=== PATIENT | female | born 1985 | race Two or more races ===

== ENCOUNTER 2018-06-05 13:48 | Emergency (ER) | payer BC, OTHER ==
[~2018-06-05] VITALS: Ht 154.9 cm; Wt 62.6 kg
[~2018-06-05 13:48] MED LIST: ATIVAN0.5 MG PO; AUGMENTIN 875-1 EAC1 ORAL; ENBREL25 MG SQ; ENBREL50 MG/1 ML SQ; IBUPROFEN600 MG ORAL; LORAZEPAM0.5 MG PO; MACROBID 100 M100 MG PO; NORCO 5-325 TA1 EACH ORAL
[2018-06-05 14:00] VITALS: BP 122/70
[2018-06-05 14:41] LABS: BASOPHILS % (AUTO) 1.2 % (0.0-2.0); EOSINOPHILS % (AUTO) 1.1 % (0.0-3.0); LYMPHOCYTES % (AUTO) 31.2 % (20.0-45.0); MEAN CORPUSCULAR VOLUME 99 FL (80-99); NEUTROPHILS % (AUTO) 59.5 % (45.0-75.0); PLATELET COUNT 280 K/UL (150-450); RED BLOOD COUNT 4.25 M/UL (4.20-5.40); RED CELL DISTRIBUTION WIDTH 11.5 % (11.6-14.8); WHITE BLOOD COUNT 7.2 K/UL (4.8-10.8)
[2018-06-05 14:50] LABS: ANION GAP 15 mmol/L (5-15); BLOOD UREA NITROGEN 10 mg/dL (7-18); CALCIUM 8.7 MG/DL (8.5-10.1); CARBON DIOXIDE 22 MMOL/L (21-32); CHLORIDE 105 MMOL/L (98-107); CREATININE 0.5 MG/DL (0.55-1.30); POTASSIUM 3.8 MMOL/L (3.5-5.1); SODIUM 142 MMOL/L (136-145)
--- NOTE | 2018-06-05 14:50 | Emergency Room Report ---
History of Present Illness General Chief Complaint: Nausea, Vomiting, and Diarrhea Source: Patient Present Illness HPI 42-year-old female presents to the emergency department complaining of multiple episodes of vomiting and diarrhea since early this a.m. Patient reports she woke up and began vomiting she estimates approximately 5 times this morning. Patient denies blood in the vomit she does report diarrhea with some specks of blood she states she has a history of external hemorrhoids and has had recent colonoscopy performed about months ago which determined this. Patient denies . she denies abdominal pain she reports some cramping sensations prior to bowel movements or episodes of vomiting. She states she was drinking heavily last night and she is not normally used to that. Eyes fevers, chills, recent travel or ill contacts. Allergies: Coded Allergies: No Known Allergies (Unverified , 04/05/12) Patient History Past Medical History: see triage record Past Surgical History: none Pertinent Family History: none Last Menstrual Period: 05/23/2018 Now: No Reviewed Nursing Documentation: PMH: Agreed; PSxH: Agreed Nursing Documentation-PMH Past Medical History: No History, Except For History Of Psychiatric Problem: Yes - anxiety Review of Systems All Other Systems: negative except mentioned in HPI Physical Exam Vital Signs Date Time Temp Pulse Resp B/P (MAP) Pulse Ox O2 Delivery O2 Flow Rate FiO2 06/05/18 13:58 98.2 99 16 122/70 98 Room Air Sp02 EP Interpretation: reviewed, normal General Appearance: alert, GCS 15, non-toxic, mild distress Head: normocephalic, atraumatic Eyes: bilateral eye normal inspection, bilateral eye PERRL ENT: hearing grossly normal, normal voice Neck: full range of motion Respiratory: lungs clear, normal breath sounds, speaking full sentences Cardiovascular #1: regular rate, rhythm, normal capillary refill Gastrointestinal: normal bowel sounds, non tender, soft, no peritonitis, non- distended, no guarding Rectal: deferred Genitourinary: normal inspection, no CVA tenderness Musculoskeletal: back normal, gait/station normal, normal range of motion, non- tender Neurologic: alert, oriented x3, responsive, motor strength/tone normal, sensory intact, normal gait, speech normal, grossly normal Psychiatric: judgement/insight normal Skin: normal color, no rash, warm/dry, well hydrated Medical Decision Making PA Attestation Dr. marroquin is my supervising Physician whom patient management has been discussed with. Diagnostic Impression: Primary Impression: Dehydration, mild Additional Impression: Nausea, vomiting, and diarrhea ER Course 42-year-old female presents to the emergency department complaining of multiple episodes of vomiting and diarrhea since early this a.m. Patient reports she woke up and began vomiting she estimates approximately 5 times this morning. Patient denies blood in the vomit she does report diarrhea with some specks of blood she states she has a history of external hemorrhoids and has had recent colonoscopy performed about months ago which determined this. Patient denies she denies abdominal pain she reports some cramping sensations prior to bowel movements or episodes of vomiting. She states she was drinking heavily last night and she is not normally used to that. Eyes fevers, chills, recent travel or ill contacts. Ddx considered but are not limited to GE, colitis, acute appy, SBO, Cyclical Vomiting secondary to THC, * Vital signs: pt. is afebrile, H&PE are most consistent with GE most likely viral in etiology, no evidence to suggest acute abdomen on physical exam. ORDERS: -CBC: WNL -BMP: WNL electrolytes ok, -Urine Hcg: negative ED INTERVENTIONS: -1000 NS iv hydration, -Zofran 4mg-- Pt. declined -Pt. reports feeling much better and is ready to go home. DISCHARGE: At this time pt. is stable for d/c to home. Will provide printed patient care instructions, and any necessary prescriptions. Care plan and follow up instructions have been discussed with the patient prior to discharge. Labs Test 06/05/18 14:20 06/05/18 14:25 Urine HCG, Qualitative Negative (NEGATIVE) White Blood Count 7.2 K/UL (4.8-10.8) Red Blood Count 4.25 M/UL (4.20-5.40) Hemoglobin 14.0 G/DL (12.0-16.0) Hematocrit 42.0 % (37.0-47.0) Mean Corpuscular Volume 99 FL (80-99) Mean Corpuscular Hemoglobin 32.9 PG (27.0-31.0) Mean Corpuscular Hemoglobin Concent 33.3 G/DL (32.0-36.0) Red Cell Distribution Width 11.5 % (11.6-14.8) Platelet Count 280 K/UL (150-450) Mean Platelet Volume 6.9 FL (6.5-10.1) Neutrophils (%) (Auto) 59.5 % (45.0-75.0) Lymphocytes (%) (Auto) 31.2 % (20.0-45.0) Monocytes (%) (Auto) 7.0 % (1.0-10.0) Eosinophils (%) (Auto) 1.1 % (0.0-3.0) Basophils (%) (Auto) 1.2 % (0.0-2.0) Sodium Level 142 MMOL/L (136-145) Potassium Level 3.8 MMOL/L (3.5-5.1) Chloride Level 105 MMOL/L (98-107) Carbon Dioxide Level 22 MMOL/L (21-32) Anion Gap 15 mmol/L (5-15) Blood Urea Nitrogen 10 mg/dL (7-18) Creatinine 0.5 MG/DL (0.55-1.30) Estimat Glomerular Filtration Rate > 60 mL/min (>60) Glucose Level 80 MG/DL (74-106) Calcium Level 8.7 MG/DL (8.5-10.1) Last Vital Signs Date Time Temp Pulse Resp B/P (MAP) Pulse Ox O2 Delivery O2 Flow Rate FiO2 06/05/18 14:00 98.2 86 16 122/70 98 Room Air Disposition: HOME, SELF-CARE Condition: Stable Scripts Ondansetron Odt* (ZOFRAN ODT*) 8 Mg Tab.rapdis 4 MG ORAL Q6H PRN for Nausea & Vomiting, #12 TAB Prov: Jie Tee 06/05/18 Dicyclomine Hcl* (DICYCLOMINE HCL*) 10 Mg Capsule 10 MG PO QID, #12 CAP Prov: Jie Tee 06/05/18 Referrals: NOT CHOSEN IPA/MD,REFERRING (PCP) Patient Instructions: Diarrhea, Adult, [id number], Nausea and Vomiting, Adult , [id number] Additional Instructions: Take medications as directed. Follow up with a Primary Care Provider in 3-5 days, even if your symptoms have resolved. --Please review list of primary care clinics, if you do not already have a primary care provider Return sooner to ED if new symptoms occur, or current symptoms become worse. - Please note that this Emergency Department Report was dictated using [employer] bucker technology software, occasionally this can lead to erroneous entry secondary to interpretation by the dictation equipment. Jie Tee Jun 05, 2018 14:49
[2018-06-05] MEDS ORDERED: DICYCLOMINE HCL10 MG PO (15:20)
[2018-06-05] MEDS ORDERED: ZOFRAN ODT8 MG ORAL (15:20)
[2018-06-05 15:30] VITALS: BP 118/70
== END 2018-06-05 15:31 | disposition home or self-care (01) ==
LOC: EMR 14:10
DX: R11.2 Nausea with vomiting, unspecified (principal); R19.7 Diarrhea, unspecified; E86.0 Dehydration; F41.9 Anxiety disorder, unspecified
CPT/HCPCS: 36415; 80048; 81025; 85025; 96360; 99284; J2405

== ENCOUNTER 2019-01-28 05:44 | Emergency (ER) | payer SELFPAY ==
[~2019-01-28] VITALS: Ht 165.1 cm; Wt 63.5 kg
[~2019-01-28 05:44] MED LIST changes: +DICYCLOMINE HCL10 MG PO; +ZOFRAN ODT8 MG ORAL
[2019-01-28 05:59] VITALS: BP 135/58
[2019-01-28] MEDS ORDERED: D5 1/2NS 1,000 ML IV SCH ×2 (06:00→06:15)
--- NOTE | 2019-01-28 06:00 | NUR ---
ED Nurse Note: Patient walked on to ER due to palpitation. Stated that woke up couple hours ago feels anxious, tachycardic. AAO x4, HR 107, other VSS at this time, skin is dry warm to touch.
--- NOTE | 2019-01-28 06:04 | Emergency Room Report ---
History of Present Illness General Chief Complaint: Palpitations Source: Patient Present Illness HPI 33-year-old female history of rheumatoid arthritis presents with palpitations and shortness of breath, patient reports she had nausea vomiting x4, with diarrhea she had alcohol yesterday, denies any fevers chills chest pain she does endorse some shortness of breath, no blood in the vomitus no blood in the diarrhea, no abdominal pain, patient states that this is happened before, she feels a lot of palpitations. She states the severity is moderate, aggravated by alcohol alleviated by not having alcohol, started at 5 AM today Allergies: Coded Allergies: No Known Allergies (Unverified , 04/05/12) Patient History Past Medical History: see triage record Social History: Reports: smoking, alcohol use Last Menstrual Period: 12/22/18 Now: No Reviewed Nursing Documentation: PMH: Agreed; PSxH: Agreed Nursing Documentation-PMH Past Medical History: No History, Except For Review of Systems All Other Systems: negative except mentioned in HPI Physical Exam Vital Signs Date Time Temp Pulse Resp B/P (MAP) Pulse Ox O2 Delivery O2 Flow Rate FiO2 01/28/19 05:52 98.1 140 21 135/58 (83) 97 Room Air Sp02 EP Interpretation: reviewed, normal General Appearance: well appearing, no apparent distress, alert Head: normocephalic, atraumatic Eyes: bilateral eye PERRL, bilateral eye EOMI ENT: uvula midline, dry mucus membranes Neck: supple, thyroid normal, supple/symm/no masses Respiratory: lungs clear, no respiratory distress, no retraction, no accessory muscle use Cardiovascular #1: normal peripheral pulses, no edema, no gallop, no murmur, tachycardia Gastrointestinal: non tender, soft, no guarding, no rebound Musculoskeletal: normal inspection Neurologic: alert, oriented x3 Psychiatric: mood/affect normal Skin: no rash, warm/dry Medical Decision Making Diagnostic Impression: Primary Impression: Palpitations Additional Impressions: Dehydration Alcoholic ketoacidosis ER Course 33-year-old female presents with acute nausea and vomiting, patient had dry mucous membranes, will rehydrate patient provided with fluids, re-eval. Reevaluation 6:30 AM heart rate 90 after fluid bolus patient more comfortable Reevaluation 7:37 AM, patient's heart rate has come down with fluid administration, patient found to have an incidental elevated TSH, patient counseled to follow-up with endocrine and her PCP. She most likely had alcoholic ketoacidosis patient feels better disposition home with return precautions Laboratory Tests Test 01/28/19 06:05 01/28/19 06:12 White Blood Count 7.5 K/UL (4.8-10.8) Red Blood Count 4.68 M/UL (4.20-5.40) Hemoglobin 15.8 G/DL (12.0-16.0) Hematocrit 46.4 % (37.0-47.0) Mean Corpuscular Volume 99 FL (80-99) Mean Corpuscular Hemoglobin 33.7 PG (27.0-31.0) H Mean Corpuscular Hemoglobin Concent 34.0 G/DL (32.0-36.0) Red Cell Distribution Width 11.6 % (11.6-14.8) Platelet Count 317 K/UL (150-450) Mean Platelet Volume 6.9 FL (6.5-10.1) Neutrophils (%) (Auto) 43.0 % (45.0-75.0) L Lymphocytes (%) (Auto) 47.5 % (20.0-45.0) H Monocytes (%) (Auto) 7.3 % (1.0-10.0) Eosinophils (%) (Auto) 1.3 % (0.0-3.0) Basophils (%) (Auto) 0.8 % (0.0-2.0) Urine Color Pale yellow Urine Appearance Clear Urine pH 6 (4.5-8.0) Urine Specific [place] 1.015 (1.005-1.035) Urine Protein 1+ (NEGATIVE) H Urine Glucose (UA) Negative (NEGATIVE) Urine Ketones 3+ (NEGATIVE) H Urine Blood 3+ (NEGATIVE) H Urine Nitrite Negative (NEGATIVE) Urine Bilirubin Negative (NEGATIVE) Urine Urobilinogen Normal MG/DL (0.0-1.0) Urine Leukocyte Esterase 1+ (NEGATIVE) H Urine RBC 2-4 /HPF (0 - 2) H Urine WBC 0-2 /HPF (0 - 2) Urine Squamous Epithelial Cells Moderate /LPF (NONE/OCC) H Urine Bacteria Occasional /HPF (NONE) Urine HCG, Qualitative Negative (NEGATIVE) Sodium Level 138 MMOL/L (136-145) Potassium Level 3.3 MMOL/L (3.5-5.1) L Chloride Level 106 MMOL/L (98-107) Carbon Dioxide Level 19 MMOL/L (21-32) L Anion Gap 14 mmol/L (5-15) Blood Urea Nitrogen 12 mg/dL (7-18) Creatinine 0.5 MG/DL (0.55-1.30) L Estimate Glomerular Filtration Rate > 60 mL/min (>60) Glucose Level 87 MG/DL (74-106) Calcium Level 8.7 MG/DL (8.5-10.1) Total Bilirubin 0.2 MG/DL (0.2-1.0) Aspartate Amino Transferase (AST) 36 U/L (15-37) Alanine Aminotransferase (ALT) 47 U/L (12-78) Alkaline Phosphatase 87 U/L (46-116) Total Creatine Kinase 52 U/L (26-308) Creatine Kinase MB < 0.5 NG/ML (0.0-3.6) Creatine Kinase MB Relative Index 0.9 Troponin I 0.000 ng/mL (0.000-0.056) Total Protein 7.7 G/DL (6.4-8.2) Albumin 3.7 G/DL (3.4-5.0) Globulin 4.0 g/dL Albumin/Globulin Ratio 0.9 (1.0-2.7) L Lipase 186 U/L (73-393) Thyroid Stimulating Hormone (TSH) 7.903 uiU/mL (0.358-3.740) Free Thyroxine 0.88 NG/DL (0.76-1.46) Free Triiodothyronine 3.0 pg/mL (2.3-4.2) Urine Opiates Screen Negative (NEGATIVE) Urine Barbiturates Screen Negative (NEGATIVE) Phencyclidine (PCP) Screen Negative (NEGATIVE) Urine Amphetamines Screen Negative (NEGATIVE) Urine Benzodiazepines Screen Positive (NEGATIVE) H Urine Cocaine Screen Negative (NEGATIVE) Urine Marijuana (THC) Screen Negative (NEGATIVE) EKG Diagnostic Results EKG Time: 06:08 EP Interpretation: Tachycardia, rate 107, QTc 467, normal axis, no acute ST elevations Rate: tachycardiac Rhythm: other - Sinus tachycardia ST Segments: no acute changes Rhythm Strip Diag. Results Rhythm Strip Time: 06:15 EP Interpretation: yes Rate: 107 Rhythm: other - sinus tachycardia, rate 112, Chest X-Ray Diagnostic Results Chest X-Ray Diagnostic Results : Chest X-Ray Ordered: Yes # of Views/Limited/Complete: 1 View Indication: Other - palpitations EP Interpretation: Yes Interpretation: no consolidation, no effusion, no pneumothorax, no acute cardiopulmonary disease Impression: No acute disease Electronically Signed by: Shabbir Giordano MD Last Vital Signs Date Time Temp Pulse Resp B/P (MAP) Pulse Ox O2 Delivery O2 Flow Rate FiO2 01/28/19 05:59 98.1 21 135/58 97 Room Air 01/28/19 05:52 140 Disposition: HOME, SELF-CARE Condition: Stable Scripts Ondansetron (Zofran) 4 Mg Tablet 4 MG ORAL Q8H PRN for Nausea & Vomiting, #10 TAB 0 Refills Prov: Shabbir Giordano MD 01/28/19 Referrals: [facility]. [facility] Patient Instructions: Dehydration, Adult, [id number] Additional Instructions: The patient was provided with discharge instructions, notified to follow-up with a primary care doctor and or specialist in the next 24-48 hours, and to return to the ED if they have worsening of their symptoms. Please note that this report is being documented using [employer] technology. This can lead to erroneous entry secondary to incorrect interpretation by the dictating instrument. Please follow-up with your primary care in regards to your elevated TSH you currently have normal thyroid hormones T4 T3, however your TSH is elevated which may be a sign of thyroid disease Please keep hydrated Shabbir Giordano MD Jan 28, 2019 06:04
[2019-01-28 06:23] LABS: BASOPHILS % (AUTO) 0.8 % (0.0-2.0); EOSINOPHILS % (AUTO) 1.3 % (0.0-3.0); HEMATOCRIT 46.4 % (37.0-47.0); HEMOGLOBIN 15.8 G/DL (12.0-16.0); LYMPHOCYTES % (AUTO) 47.5 % (20.0-45.0); MEAN CORPUSCULAR VOLUME 99 FL (80-99); MONOCYTES % (AUTO) 7.3 % (1.0-10.0); PLATELET COUNT 317 K/UL (150-450); RED BLOOD COUNT 4.68 M/UL (4.20-5.40); RED CELL DISTRIBUTION WIDTH 11.6 % (11.6-14.8); WHITE BLOOD COUNT 7.5 K/UL (4.8-10.8)
[2019-01-28 06:27] LABS: APPEARANCE,URINE CLEAR; BILIRUBIN, URINE NEGATIVE (NEGATIVE); COLOR,URINE PALE YELLOW; GLUCOSE, URINE (UA) NEGATIVE (NEGATIVE); KETONES,URINE 3+ (NEGATIVE); LEUKOCYTE ESTERASE ,URINE 1+ (NEGATIVE); NITRITE,URINE NEGATIVE (NEGATIVE); PH,URINE 6 (4.5-8.0); PROTEIN,URINE 1+ (NEGATIVE); UROBILINOGEN,URINE NORMAL MG/DL (0.0-1.0)
[2019-01-28 06:34] LABS: ANION GAP 14 mmol/L (5-15); BLOOD UREA NITROGEN 12 mg/dL (7-18); CALCIUM 8.7 MG/DL (8.5-10.1); CARBON DIOXIDE 19 MMOL/L (21-32); CHLORIDE 106 MMOL/L (98-107); CREATININE 0.5 MG/DL (0.55-1.30); POTASSIUM 3.3 MMOL/L (3.5-5.1); SODIUM 138 MMOL/L (136-145)
[2019-01-28 06:48] LABS: ALANINE AMINOTRANSFERASE 47 U/L (12-78); ALBUMIN 3.7 G/DL (3.4-5.0); ALBUMIN/GLOBULIN RATIO 0.9 (1.0-2.7); ALKALINE PHOSPHATASE 87 U/L (46-116); ASPARTATE AMINO TRANSFERASE 36 U/L (15-37); BILIRUBIN,TOTAL 0.2 MG/DL (0.2-1.0); CKMB < 0.5 NG/ML (0.0-3.6); CREATINE KINASE 52 U/L (26-308)
--- NOTE | 2019-01-28 07:16 | NUR ---
ED Nurse Note: Received report from Tabitha HANSON. Patient is alert and orientedx4, verbally responsive. On IVF NS 1L and D5 1/2 NS. Breathing even and unlabored. Afebrile. Assisted pt going to the restroom.
[2019-01-28] MEDS ORDERED: ZOFRAN4 MG ORAL (07:40)
[2019-01-28 07:43] VITALS: BP 118/73
--- NOTE | 2019-01-28 07:50 | NUR ---
ED Nurse Note: Pt cleared by ERMD for discharge. DC instructions/prescription was given and explained to pt and verbalized understanding of teachings. All medical deviecs such as ID band and IV line removed. Pt is AAO x4, ambulatory and left with all personal belongings.
--- NOTE | 2019-01-28 11:08 | Diagnostic Imaging Report ---
Indication: Reason For Exam: PAIN Technique: One view of the chest Comparison: 04/05/2012 Findings: Lungs and pleural spaces are clear. Heart size is normal. No significant interim change Impression: No acute process
--- NOTE | 2019-01-28 19:52 | Cardiology Report ---
APPROVED REPORT EKG Measurement Heart [id number] HI [id number] Sinus tachycardia Otherwise normal ECG
== END 2019-01-28 07:43 | disposition home or self-care (01) ==
LOC: EMR 05:58
DX: R00.2 Palpitations (principal); E86.0 Dehydration; E87.2 Acidosis; F17.200 Nicotine dependence, unspecified, uncomplicated; F10.188 Alcohol abuse with other alcohol-induced disorder
CPT/HCPCS: 36415; 71045; 80053; 80307; 81003; 81025; 82550; 82553; 83690; 84439; 84443; 84481; 84484; 85025; 93005; 96361; 96374; 99284; J2405